=== PATIENT | female | born 1995 | race Hispanic/Latino ===

== ENCOUNTER 2017-02-28 00:26 | Day surgery (SDC) | payer MEDICAID ==
[2017-02-28 01:00] VITALS: BMI 28.0
[2017-02-28 01:01] VITALS: BP 116/60; TEMP 98.1
--- NOTE | 2017-02-28 03:47 | PRG ---
DATE OF SERVICE: 02/28/2017 PRIMARY OB: Dr. South Campos. CHIEF COMPLAINT: Decreased movement. HISTORY OF PRESENT ILLNESS: The patient is a 21-year-old G1, P0 female with an intrauterine pregnanc y at 30 weeks, who is presenting today reporting that she has not felt her baby move for the last 12 hours. The patient denies any medical problems. She denies any recent illness, fever, fall, headach e, chest pain, shortness of breath, nausea, vomiting, diarrhea, constipation, any new rashes, any hip or knee problems, vaginal bleeding, leakage of fluid, urinary urgency or frequency. She does report she has had some back pain in the past, but is better now. PAST MEDICAL HISTORY: Negative. PAST SURGICAL HISTORY: Negative. OBSTETRIC HISTORY: This is her first . ALLERGIES: No known drug allergies. SOCIAL HISTORY: Denies drug, alcohol or tobacco use. OB LABS: Unavailable at this time. REVIEW OF SYSTEMS: Per HPI. PHYSICAL EXAMINATION: VITAL SIGNS: Blood pressure 116/60, heart rate of 89, respiratory rate of 18, temperature 98.1. GENERAL: She appears to be in no acute distress. She is alert and oriented, and cooperative and ple asant to interact with. HEAD: Normocephalic, atraumatic. LUNGS: Clear to auscultation bilaterally. HEART: Has regular rate and rhythm. ABDOMEN: Soft, nontender to palpation. EXTREMITIES: Nontender. Nonedematous. GENITOURINARY: Has been deferred. heart tracing performed for decreased movement demonstrates a baseline in the 130s with m oderate long-term variability, positive accelerations, no decelerations, duration is 30 minutes. Laura ometer demonstrates some irritability, but not felt by the patient. ASSESSMENT AND PLAN: The patient is a 21-year-old G1, P0 female with decreased movement and a reactive NST. Reassurance has been given to the patient. She is being discharged home with labor precautions. She has an appointment on 03/13/2017 with her primary OB which she has been encou raged to keep.
[2017-02-28] MEDS ORDERED: FLU VACC QS2017-18 36 mo. & older 0.5 ML SYRINGE IM ONE (09:00)
== END 2017-02-28 02:00 | disposition home or self-care (01) ==
LOC: L&D/OP 00:26
PROVIDERS: ATTEND Obstetrics & Gynecology
DX: O36.8130 Decreased fetal movements, third trimester, not applicable or unspecified (principal); Z3A.30 30 weeks gestation of pregnancy; Z79.899 Other long term (current) drug therapy

== ENCOUNTER 2017-04-29 11:41 | Day surgery (SDC) | payer OTHER ==
[2017-04-29 12:16] VITALS: BMI 26.2
--- NOTE | 2017-04-29 14:19 | PDOC.EVN ---
Event Note - Event Note Event Note: 04/29/17 @ 1415: L&D Triage. Patient first arrived at approx noon and now has been observed for 2 hours, atble. CC: Here for CTX at term OBGYN: sees Dr Aguayo HPI: 21 yo G1 at 38 weeks 6 days with irregular ctx since 0700. No LOF no VB no trauma, no HERNANDEZ no visual changes or RUQ pain. Good FM. No GI or sxs. No issues. Review of systems: complete ROS done and only as per HPI Medical history: neg Social history: negative Surgical history: Negative OB history: G1 Physical: 113/68 84 afebrile NAD abdomen soft and NT EFW approx 6 pounds pelvic: 3-75--3?I (no change in 1 hour) Monitors: Cat 1 (was decreased variablity initially but then sleep cycle likely over as reactivity returned). No pathological decels. Contractions few, irregular Labs: GBS neg Assessment/Plan: G1 in latent labor. No evidence true labor by ctx frequency or cx change 1. Stable for dsch 2. Has MD appt in 48 hours 3. Offer pain meds prn 4. BPs ok
== END 2017-04-29 14:35 | disposition home or self-care (01) ==
LOC: L&D/OP 11:41
PROVIDERS: ATTEND Obstetrics & Gynecology
DX: O47.1 False labor at or after 37 completed weeks of gestation (principal); Z3A.38 38 weeks gestation of pregnancy

== ENCOUNTER 2017-04-29 17:39 | Inpatient (IN) | payer OTHER ==
[2017-04-29] MEDS ORDERED: Ondansetron HCl/PF 4 MG/2 ML Vial IVP PRN ×2 (17:52→21:35)
[2017-04-29] MEDS ORDERED: Lidocaine 1% (PF) 30 ML VIAL SC PRN (17:52)
[2017-04-29] MEDS ORDERED: LR / Pitocin 40 units/1000 ml 1,000 ML IV PRN (17:52)
[2017-04-29] MEDS ORDERED: Ibuprofen 800 MG TAB PO PRN (17:52)
[2017-04-29] MEDS ORDERED: Promethazine HCl 25 MG/ML VIAL IM PRN (17:52)
[2017-04-29] MEDS ORDERED: Lactated Ringer's 1,000 ML IV SCH (18:00)
[2017-04-29 18:09] VITALS: BMI 26.2
--- NOTE | 2017-04-29 18:09 | PDOC.EVN ---
Event Note - Event Note Event Note: 04/29/17 @1800: Patient has full handwritten H&P in progress notes in chart. please see that H& P. L&D Admission: First presented to ED with contractions. patient of Dr irizarry. Assessment: 21yo G1 at 38 weeks 6 days, GBS negative, no issues, now complete/complete/+1 BOWI. Plan: Prep for delivery. Dr juan c aragon. Dr Zavaleta and myself at bedside as standby.
--- NOTE | 2017-04-29 18:14 | PDOC.LDHP ---
Labor and Delivery H&P Chief complaint: contractions HPI: 21 yo G1 @ 38w6d by LMP c/w 10 week sono who presents in active labor. Current gestational age (weeks): 38 Dating criteria: last menstrual period Allergies/Adverse Reactions: Allergies Allergy/AdvReac Type Severity Reaction Status Date / Time No Known Allergies Allergy Verified 02/28/17 00:57
--- NOTE | 2017-04-29 18:23 | PDOC.EVN ---
Event Note - Event Note Event Note: @1815: Dr Aguayo at bedside. patient doing well. Delivery seems imminent. Will sign off as primary OB here.
[2017-04-29 18:26] LABS: Mean Corpuscular HGB CONC 34.8 g/dL (32.0-36.0); Mean Corpuscular Hemoglobin 33.7 pg (25.0-35.0); Mean Corpuscular Volume 96.8 fl (77.0-87.0); Mean Platelet Volume 8.9 fL (7.4-10.4); Platelet Count 255 thou/uL (130-400); RBC Distribution Width 12.5 % (11.5-14.5); Red Blood Cell (RBC) Count 3.56 mill/uL (4.00-5.20); White Blood Cell (WBC) Count 12.4 thou/uL (4.8-10.8)
[2017-04-29 19:15] LABS: Syphilis Antibody Nonreactive (Nonreactive); Syphilis Antibody Index 0.04 S/CO (<1.00 Non-Reactive)
[2017-04-29 19:25] LABS: Hep B Surf Ag Non-Reactive S/CO (NonReactive)
[2017-04-29] MEDS ORDERED: Milk Of Magnesia 30 ML UDCUP PO PRN (21:35)
[2017-04-29] MEDS ORDERED: Bisacodyl 10 MG SUPP PR PRN (21:35)
[2017-04-29] MEDS ORDERED: Benzocaine/Menthol 20-0.5% 60 ML CAN TOP PRN (21:35)
[2017-04-29] MEDS ORDERED: LR / Pitocin 40 units/1000 ml 1,000 ML IV SCH (21:35)
[2017-04-29] MEDS ORDERED: Acetaminophen/Codeine 30-300mg Tablet PO PRN ×2 (21:56)
[2017-04-29] MEDS ORDERED: Docusate Calcium (SURFAK) 240 MG CAP PO SCH (22:00)
[2017-04-29] MEDS: Docusate Calcium (SURFAK) 240 MG CAP PO SCH (22:05)
[2017-04-29] MEDS: Ibuprofen 800 MG TAB PO SCH (22:05)
[2017-04-30] MEDS: Ibuprofen 800 MG TAB PO SCH ×3 (06:16→21:52)
[2017-04-30] MEDS: Ferrous Sulfate 325 MG TAB PO SCH ×2 (08:12→17:47)
[2017-04-30] MEDS ORDERED: Adacel (T-DAP) 0.5 ML VIAL IM ONE (09:00)
[2017-04-30] MEDS: Docusate Calcium (SURFAK) 240 MG CAP PO SCH ×2 (09:02→21:56)
[2017-04-30] MEDS: Prenatal Vitamin 1 TAB PO SCH (09:02)
--- NOTE | 2017-04-30 12:58 | OP-2 ---
DATE OF PROCEDURE: 04/30/2017 VAGINAL DELIVERY NOTE DELIVERING PHYSICIAN: Edita Allan DO. ATTENDING PHYSICIAN: Geraldine Barr DO. PROCEDURE: Spontaneous vaginal delivery. ANESTHESIA: 1% lidocaine local for repair. ESTIMATED BLOOD LOSS: 300 mL. PREOPERATIVE DIAGNOSIS: Term intrauterine , in labor. POSTOPERATIVE DIAGNOSES: 1. Term intrauterine , delivered. 2. First-degree perineal laceration status post repair. INDICATIONS: A 21-year-old female, G1, P0 that presents in active labor. DELIVERY NOTE: This is a 21-year-old female, G1, P0-0-0-0 at 38 weeks and 6 days who delivered a viable male infant at 18:34. Following an uneventful antepartum course, a vigorous male was delivered over an intact perineum in the occipitoanterior position. Anterior shoulder and the remainder of the body delivered. There was a reducible nuchal cord x1. The head was held down and mouth and nares were bulb suctioned. Cord clamped and cut and cord blood collected. Placenta delivered intact with 3-vessel cord noted. Fundal massage was performed and the fundus was firm. The cervix and vagina were inspected and there was found to be a first degree perineal laceration, which was repaired with 3-0 chromic in the usual fashion with good approximation and hemostasis after local anesthetic with 1% lidocaine was injected at the site. went to nursery in good condition for routine recovery. Apgars were 8 and 9 at 1 and 5 minutes respectively. The patient tolerated delivery well and went to after routine recovery/care. Agree with documentation by Dr. Allan. G1 with uncomplicated , 1st degree perineal laceration repaired. MTDD
--- NOTE | 2017-04-30 13:19 | PDOC.PP ---
Post Progress Note Post Day #: 1 Subjective: Doing well. No concerns. Breast feeding. Minimal lochia. PO intake tolerated: yes Flatus: yes Ambulation: yes Vital Signs (12 hours) Temp Pulse Resp BP 04/30/17 09:00 99.2 F 79 18 119/63 04/30/17 08:25 99.2 F 79 18 04/30/17 04:00 97.5 F L 75 18 111/70 Weight Weight 153 lb - Physical Examination General: NAD Cardiovascular: RRR Respiratory: non-labored breathing Abdominal: no distention, appropriately TTP Fundus firm & at: below umbilicus Extremities: negative homans (B) Neurological: no gross focal deficits Psychiatric: A&Ox3 Result Diagrams: 04/29/17 18:01 Additional Labs: Post Labs Blood Type A POSITIVE 04/29/17 18:01 Hep Bs Antigen Non-Reactive S/CO (NonReactive) 04/29/17 18:01 (1) Vaginal delivery Code(s): O80 - ENCOUNTER FOR FULL-TERM UNCOMPLICATED DELIVERY Status: Acute - Assessment/Plan Doing well PP. Continue PP care. Plan for d/c tomorrow.
[2017-05-01] MEDS: Ibuprofen 800 MG TAB PO SCH (06:14)
[2017-05-01 07:58] VITALS: BP 108/52; TEMP 98.5
--- NOTE | 2017-05-01 08:22 | PDOC.PP ---
Post Progress Note Post Day #: 2 Subjective: Doing well. No complaints. Breast feeding. PO intake tolerated: yes Flatus: yes Ambulation: yes Vital Signs (12 hours) Temp Pulse Resp BP BP 05/01/17 07:57 98.5 F 80 20 108/52 L 04/30/17 21:15 98.4 F 85 18 117/73 Weight Weight 153 lb - Physical Examination General: NAD Cardiovascular: RRR Respiratory: non-labored breathing Abdominal: no distention, appropriately TTP Fundus firm & at: below umbilicus Extremities: negative homans (B) Neurological: no gross focal deficits Psychiatric: A&Ox3 Result Diagrams: 04/29/17 18:01 Additional Labs: Post Labs Blood Type A POSITIVE 04/29/17 18:01 Hep Bs Antigen Non-Reactive S/CO (NonReactive) 04/29/17 18:01 (1) Vaginal delivery Code(s): O80 - ENCOUNTER FOR FULL-TERM UNCOMPLICATED DELIVERY Status: Acute - Assessment/Plan D/C home today with .
[2017-05-01] MEDS: Docusate Calcium (SURFAK) 240 MG CAP PO SCH (09:10)
[2017-05-01] MEDS: Prenatal Vitamin 1 TAB PO SCH (09:10)
[2017-05-01] MEDS: Ferrous Sulfate 325 MG TAB PO SCH (09:11)
== END 2017-05-01 12:05 | disposition home or self-care (01) | DRG 775 ==
LOC: L&D/OP 17:39 → L&D 18:47 → 3SW 21:10
PROVIDERS: ADMIT Obstetrics & Gynecology; ATTEND Obstetrics & Gynecology
PROC: 10E0XZZ Delivery of Products of Conception, External Approach (ICD-10-PCS; principal; 2017-04-30)
PROC: 0HQ9XZZ Repair Perineum Skin, External Approach (ICD-10-PCS; 2017-04-30)
DX: O70.0 First degree perineal laceration during delivery (principal); O69.81X0 Labor and delivery complicated by cord around neck, without compression, not applicable or unspecified; Z37.0 Single live birth; Z3A.38 38 weeks gestation of pregnancy
CPT/HCPCS: 85027; 86780; 87340; 99281; 99285; J2001

== ENCOUNTER 2017-12-11 15:15 | Emergency (ER) | payer OTHER, SELFPAY ==
[2017-12-11] MEDS ORDERED: Dexamethasone 4 MG TAB PO SCH (17:00)
[2017-12-11] MEDS ORDERED: Artificial Tears 18 DROP/0.9 ML R EYE SCH (17:00)
[2017-12-11] MEDS ORDERED: valACYclovir 500 MG TAB PO SCH (17:00)
== END 2017-12-11 17:41 | disposition home or self-care (01) ==
LOC: ERS 15:15
DX: G51.0 Bell's palsy (principal)
CPT/HCPCS: 99283; J8540

== ENCOUNTER 2020-12-11 14:47 | Outpatient (CLI) | payer MEDICAID | END 2020-12-11 14:48 | disposition home or self-care (01) | LOC: BICULT 14:47 | PROVIDERS: ATTEND Nurse Practitioner Family | DX: N63.15 Unspecified lump in the right breast, overlapping quadrants (principal) ==

== ENCOUNTER 2022-02-11 18:26 | Emergency (ER) | payer MEDICAID ==
[2022-02-11] MEDS ORDERED: Ondansetron ODT 4 MG TAB ONE (19:48)
[2022-02-11] MEDS ORDERED: diphenhydrAMINE 50 MG/ML VIAL ONE (20:31)
[2022-02-11] MEDS ORDERED: Metoclopramide HCl 10 MG/2 ML VIAL ONE (20:31)
[2022-02-11 20:54] LABS: #Lymphocytes 0.8 thou/uL (1.20-3.40); #Monocytes 0.9 thou/uL (0.11-0.59); #Neutrophils 7.8 thou/uL (1.40-6.50); %Basophils 0.1 % (0.0-1.0); %Eosinophils 0.5 % (0.0-10.0); %Lymphocytes 8.4 % (21.0-51.0); %Monocytes 8.9 % (0.0-10.0); %Neutrophils 82.1 % (42.0-75.0); Hemoglobin 13.5 g/dL (12.0-16.0); Mean Corpuscular HGB CONC 32.7 g/dL (32.0-36.0); Mean Corpuscular Hemoglobin 31.3 pg (27.0-31.0); Mean Corpuscular Volume 95.5 fl (78.0-98.0); Mean Platelet Volume 7.9 fL (7.4-10.4); Platelet Count 263 10x3/uL (130-400); RBC Distribution Width 11.7 % (11.5-14.5); White Blood Cell (WBC) Count 9.5 10x3/uL (4.8-10.8)
[2022-02-11 21:14] LABS: ALT (SGPT) 12 U/L (8-55); AST (SGOT) 15 U/L (5-34); Albumin 4.2 g/dL (3.5-5.0); Alkaline Phosphatase 61 U/L (40-110); Anion Gap 13 mmol/L (10-20); BUN (Urea Nitrogen) 11 mg/dL (7.0-18.7); Bilirubin, Total 0.3 mg/dL (0.2-1.2); Calc. Creatinine Clearance 0 mL/min (70-130); Calcium 8.9 mg/dL (7.8-10.44); Carbon Dioxide 23 mmol/L (22-29); Chloride 104 mmol/L (98-107); Estimated GFR 105; Globulin 3.6 g/dL (2.4-3.5); Glucose 98 mg/dL (70-105); Potassium 3.8 mmol/L (3.5-5.1); Protein, Total 7.8 g/dL (6.0-8.3); Sodium 136 mmol/L (136-145)
== END 2022-02-11 22:18 | disposition home or self-care (01) ==
LOC: ERS 18:26
DX: R51.9 Headache, unspecified (principal); H10.9 Unspecified conjunctivitis; R11.2 Nausea with vomiting, unspecified
CPT/HCPCS: 36415; 80053; 85025; 96365; 96375; J1200; J2765; Q0162

== ENCOUNTER 2024-04-05 13:41 | Outpatient (CLI) | payer MEDICAID, OTHER | END 2024-04-05 13:42 | disposition home or self-care (01) | LOC: BICULT 13:41 | DX: N63.15 Unspecified lump in the right breast, overlapping quadrants (principal) ==